=== PATIENT | male | born 1955 | race Caucasian/White ===

== ENCOUNTER 2020-10-21 18:59 | Emergency (ER) | payer OTHER ==
[~2020-10-21] VITALS: Ht 177.8 cm; Wt 102.1 kg
[2020-10-21 19:00] VITALS: BP 159/87
[2020-10-21 19:57] LABS: BE -5.4 mmol/L (-2 to +3); PCO2 20.8 mmHg (35.0-45.0); PO2 67.4 mmHg (75.0-100.0); pH 7.493 (7.340-7.450)
[2020-10-21 20:27] LABS: HEMATOCRIT 38.2 % (42.0-52.0); HEMOGLOBIN 13.1 gm/dL (14.0-18.0); MCH 28.8 pg (26.0-34.0); MCHC 34.4 g/dL (28.0-37.0); MCV 83.9 fL (80.0-100.0); MPV 8.2 fl. (7.2-11.1); NUCLEATED RBCS 0 /100WBC; PLATELET COUNT* 235 thou/uL (150-400); RBC 4.55 mil/uL (4.50-6.00); RDW-CV 13.6 % (10.5-14.5); WBC 14.9 thou/uL (4.0-11.0)
[2020-10-21 21:04] LABS: ABSOLUTE MONOCYTES 0.6 thou/uL (0.0-1.2); ABSOLUTE NEUTROPHILS 13.3 thou/uL (1.6-8.1); LARGE PLATELETS RARE; PLATELET ESTIMATE ADEQUATE
[2020-10-21 21:16] LABS: CALCIUM 7.4 mg/dL (8.5-10.1); POTASSIUM 3.9 mmol/L (3.5-5.1)
[2020-10-21 21:21] LABS: ALBUMIN 2.5 g/dL (3.4-5.0); MAGNESIUM 2.2 mg/dL (1.8-2.4); TOTAL BILIRUBIN 0.9 mg/dL (<0.1-1.0); TOTAL PROTEIN 6.5 g/dL (6.4-8.2)
[2020-10-21 23:47] VITALS: BP 138/73
--- NOTE | 2020-10-22 10:00 | EKG ---
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 : 1955 Requested By: Edilma Vaca Order Number: [id number] MD: Luis Antonio Hubbard Measurements Intervals [place] Rate: 93 P: 58 TX: 201 QRS: 248 QRSD: 116 T: 41 QT: 407 QTc: 507 Interpretive Statements Sinus rhythm Probable left atrial enlargement LAD, consider left anterior fascicular block Consider left ventricular hypertrophy Minimal ST elevation, anterolateral leads Baseline wander in lead(s) V3 No previous ECG available for comparison Electronically Signed On 10-22-2020 9:59:57 CDT by Luis Antonio Hubbard [email or web address] <ELECTRONICALLY SIGNED> By: Luis Antonio Hubbard MD, FACC 10/22/20 0959 30 30 Luis Antonio Hubbard MD, FAC /EPI
== END 2020-10-21 23:47 | disposition admitted as inpatient to this hospital (09) ==
LOC: M.ERS 18:59 → M.TBA-ER 21:03 → M.ERS 21:03
PROVIDERS: Personal Emergency Response Attendant
DX: U07.1 COVID-19 (principal); Z20.822 Contact with and (suspected) exposure to COVID-19; J96.01 Acute respiratory failure with hypoxia; J12.82 Pneumonia due to coronavirus disease 2019; I21.3 ST elevation (STEMI) myocardial infarction of unspecified site; I10 Essential (primary) hypertension